=== PATIENT | female | born 1940 | race Caucasian/White ===

== ENCOUNTER → 2023-09-04 11:00 | Outpatient (REF) | payer MEDICARE, BC, SELFPAY | LOC: RCS 11:00 | PROVIDERS: ATTENDING PHYSICIAN Internal Medicine Cardiovascular Disease; FAMILY PHYSICIAN Family Medicine | DX: I35.0 Nonrheumatic aortic (valve) stenosis (principal) | CPT/HCPCS: 93306 ==

== ENCOUNTER 2023-10-29 12:05 | Emergency (ER) | payer MEDICARE, BC, SELFPAY ==
[2023-10-29 12:20] VITALS: BP 181/52
[2023-10-29 14:01] VITALS: BP 159/59
--- NOTE | 2023-10-29 14:39 | ED.GENMED ---
History of Present Illness
General
Chief Complaint: Musculo-Skeletal Complaint
Source: patient
Exam Limitations: none
Time Seen by Provider: 10/29/23 14:23
Nursing documentation reviewed up to this point in time: agreed with
History of Present Illness
History of Present Illness:
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
Patient says she had things in her hand and was exiting the area and suddenly got some dizziness and then went to grab onto something and could not and so she fell. She fell onto her right side. She denies head strike. She has pain in her right
clavicle and pain with movement of her arm. She has no numbness tingling or weakness or shortness of breath. She has no headache or neck pain, confusion, vomiting. She is not on any blood thinners. Patient was recently seen by her manager knowledge
for her aortic stenosis which is stable. She is will likely need a valve replacement within the year. She says that she has been having episodes of dizziness which seem to be more spinning sensation when she gets out of bed initially and the
manager knowledge thought it was vertigo. Patient says she is not on any treatment for this. She said today's episode did not feel like spinning but she just got dizzy. She is absolutely adamant that she is not to have any testing, she just wanted an
x-ray to confirm whether she had a clavicle fracture. She is otherwise declining a workup for dizziness.
Past History
Past History
ED Past Medical History: HTN, Hypercholesterolemia and Other (Aortic stenosis)
Social History
Tobacco: Non-smoker
Drug: Marijuana
Review of Systems
Review of Systems
Allergies reviewed?: Yes
All Other Systems: Not applicable
Phy Exam
Physical Exam
Physical Exam:
GENERAL: Alert , in no apparent distress, elevated mood, pleasant; playful
HEAD: NCAT
NECK: no midline tenderness, active ROM intact, no paraspinal muscle tenderness;
EYE: pupils equal and reactive, EOMs intact.
ENT: o/p clr, mmm. no hemotympanum
CARDIAC: Regular rate and rhythm, no edema loud murmur4/6
LUNGS: Clear breath sounds bilaterally, no acute respiratory distress, no wheezes/rales/rhonchi
ABDOMEN: Soft, without focal tenderness, no r/g, no cvat
NEUROLOGICAL: Alert and oriented, no focal neuro deficits, CN intact, 5/5 strength, sensation intact
SKIN: Warm and dry, some bruising right clavicle area
MUSCULOSKELETAL:STS right mid shaft clavicle with tenderness, no skin tenting
limited ROM of her shoulder
nontender elbow ofrearm wrist and hand
no hip or back tenderness
PSYCH: Normal and appropriate interaction.
Course
Orders/Labs/Results
Orders:
Orders
10/29/23 12:23
Clavicile, Right Complete CR [CR Clavicle - Right Complete] Urgent
Comment:
Reason For Exam: pain
Vital Signs
Initial and Last Documented VS:
Initial Vital Signs
Temp Pulse Resp BP Pulse Ox
98.1 F 60 20 181/52 98
10/29/23 12:20 10/29/23 12:20 10/29/23 12:20 10/29/23 12:20 10/29/23 12:20
Last Documented Vital Signs
Temp Pulse Resp BP Pulse Ox
98.1 F 62 16 159/59 97
10/29/23 12:20 10/29/23 14:01 10/29/23 14:01 10/29/23 14:01 10/29/23 14:01
MDM/Problems Addressed
Differential Diagnosis Includes:
aortic stenosis, near syncope, vertigo, dehdyration, orthostasis, clavicle fx
MDM/Problems Addressed:
82-year-old female with aortic stenosis presents for a fall which was preceded by feeling of dizziness which she does not describe as vertiginous but more off balance and went to grab onto something and there was nothing to grab onto. Patient says
that she has had episodes of dizziness off and on for the last couple of months. She recently saw her manager knowledge and was told her numbers still looked okay and that she will need an valve replacement for another year. Patient today just has
right clavicle pain. She denies head strike and she is not on any anticoagulants. She does smoke marijuana and does seem to be having an elevated mood but she does not appear intoxicated. She has no signs of head trauma, no midline neck
tenderness, but tenderness in her right clavicle with some soft tissue swelling without skin tenting. Neurovascularly intact. She does have a very loud murmur. I do recommend that the patient have a workup for the dizziness and consider that this
could be aortic stenosis as a cause but she declines adamantly. She is aware of the risks by leaving without getting a formal workup for the dizziness. Will refer patient to follow-up with Ortho, sling placed
X-ray independently reviewed by me and patient has displaced clavicle fracture
*Critical Care Note
Total Time (30-74mins, 75-104mins- exclusive of procedures): Not Applicable
ED Attending Note
-
Portions of this chart may have been created with voice recognition software.� Occasional wrong word or��sound alike� substitutions may have occurred due to the inherent limitations of voice recognition software.
Discharge Plan
Departure
Patient Disposition: Home (Routine Discharge)
Date of Disposition: 10/29/23
Time of Disposition: 14:48
Patient with high blood pressure during this ER visit?: Yes
Condition: Fair
Covid-19: Not Applicable
Discharge Problem:
Clavicle fracture, shaft
[facility]
Prescriptions:
No Action
atorvastatin 10 MG tablet
10 mg PO HS
ondansetron HCl 4 MG tablet
4 mg PO PRN PRN (Reason: nausea)
clonazepam 0.5 MG tablet
0.5 mg PO HS
quinapril [Accupril] 40 MG tablet
40 mg PO HS
levothyroxine 88 MCG tablet
88 mcg PO DAILY
diltiazem HCl 300 MG capsule,extended release 24hr
300 mg PO HS
pantoprazole 40 MG tablet,delayed release (DR/EC)
40 mg PO HS
ranitidine HCl [Zantac] 150 MG tablet
1 tab PO BID
fluoxetine 20 MG capsule
20 mg PO DAILY
hydrochlorothiazide 12.5 MG tablet
12.5 mg PO HS
Co Q-10 10 MG
10 mg PO HS
Referrals:
Ulisses Jean-Baptiste MD [Active] - Follow up in 5-7 days
Activity Restrictions/Additional Instructions:
You have a broken collarbone. It is possible this may need surgery but most likely not. Please rest and use the sling. Ice off-and-on. Tylenol 2-3 times a day for pain as needed. Call Dr. Jean-Baptiste for follow-up. Return for any concerns. Note
that we did offer you a workup for the dizziness and you could have a concerning cause for this so if you continue to have these episodes you should return.
Interventions
Interventions:
*Risk Screen - Suicide Last Done: 10/29/23 14:01
*General Assessment Last Done: 10/29/23 14:01
*Neglect/Abuse Screening Last Done: 10/29/23 14:01
ED- Fall Risk Assessment Last Done: 10/29/23 14:01
*ED COVID-19 Vaccine History Last Done: 10/29/23 14:01
ED-Musculoskeletal Assessment Last Done: 10/29/23 14:01
Discharge Date and Time
Print Language: ROMANIAN
== END 2023-10-29 15:01 | disposition home or self-care (01) ==
LOC: EMR 12:05
PROVIDERS: EMERGENCY PHYSICIAN Emergency Medicine; FAMILY PHYSICIAN Family Medicine
DX: S42.021A Displaced fracture of shaft of right clavicle, initial encounter for closed fracture (principal); W19.XXXA Unspecified fall, initial encounter; I35.0 Nonrheumatic aortic (valve) stenosis; I10 Essential (primary) hypertension; E11.9 Type 2 diabetes mellitus without complications
CPT/HCPCS: 99283; 73000

== ENCOUNTER → 2024-04-23 09:12 | Outpatient (REF) | payer MEDICARE, BC, SELFPAY | LOC: RCS 09:12 | PROVIDERS: ATTENDING PHYSICIAN Internal Medicine Cardiovascular Disease; FAMILY PHYSICIAN Family Medicine | DX: I35.0 Nonrheumatic aortic (valve) stenosis (principal); I10 Essential (primary) hypertension; I34.0 Nonrheumatic mitral (valve) insufficiency | CPT/HCPCS: 93306 ==

== ENCOUNTER → 2024-09-17 10:09 | Outpatient (REF) | payer MEDICARE, BC, SELFPAY ==
[2024-09-17 11:30] LABS: Blood Urea Nitrogen 25 mg/dl (7-17); Calcium 9.6 mg/dl (8.4-10.2); Carbon Dioxide 30 mmol/L (22-30); Chloride 103 mmol/L (98-107); Glucose 122 mg/dl (70-99); Potassium 4.5 mmol/L (3.5-5.1); Sodium 138 mmol/L (135-145); eGFR 50.48
== END ==
LOC: REG 10:09
PROVIDERS: ATTENDING PHYSICIAN Internal Medicine Cardiovascular Disease; FAMILY PHYSICIAN Family Medicine
DX: I10 Essential (primary) hypertension (principal)
CPT/HCPCS: 36415; 80048

== ENCOUNTER → 2024-10-17 10:34 | Outpatient (REF) | payer MEDICARE, BC, SELFPAY ==
[2024-10-17 14:09] LABS: Blood Urea Nitrogen 25 mg/dl (7-17); Calcium 9.9 mg/dl (8.4-10.2); Carbon Dioxide 23 mmol/L (22-30); Chloride 110 mmol/L (98-107); Glucose 145 mg/dl (70-99); Potassium 4.5 mmol/L (3.5-5.1); Sodium 141 mmol/L (135-145); eGFR > 60.00
== END ==
LOC: REG 10:34
PROVIDERS: ATTENDING PHYSICIAN Internal Medicine Cardiovascular Disease
DX: I10 Essential (primary) hypertension (principal)
CPT/HCPCS: 36415; 80048